=== PATIENT | male | born 1985 | race Caucasian/White ===

== ENCOUNTER 2020-06-10 14:49 | Emergency (ER) | payer MEDICAID ==
[~2020-06-10] VITALS: Ht 172.7 cm; Wt 84.0 kg
[~2020-06-10 14:49] MED LIST: ONDA8TAB9 PO; QUET-1 PO
[2020-06-10] MEDS ORDERED: ketorolac trometh inj. 60 MG/2 ML VIAL IM ONE (16:05)
[2020-06-10 16:26] VITALS: BP 127/84
== END 2020-06-10 16:23 | disposition home or self-care (01) ==
LOC: ER 14:49
DX: R07.89 Other chest pain (principal); F31.9 Bipolar disorder, unspecified; F20.9 Schizophrenia, unspecified; F12.90 Cannabis use, unspecified, uncomplicated; F15.90 Other stimulant use, unspecified, uncomplicated; F17.210 Nicotine dependence, cigarettes, uncomplicated; Z88.8 Allergy status to other drugs, medicaments and biological substances; Z79.899 Other long term (current) drug therapy
CPT/HCPCS: 71045; 93005; 96372; 99283; J1885

== ENCOUNTER 2022-03-19 22:49 | Emergency (ER) | payer MEDICAID ==
[~2022-03-19] VITALS: Ht 172.7 cm; Wt 68.2 kg
[2022-03-19 22:54] VITALS: BP 137/78
== END 2022-03-20 01:32 | disposition left against medical advice (07) ==
LOC: ER 22:50
DX: T78.40XA Allergy, unspecified, initial encounter (principal); Z53.21 Procedure and treatment not carried out due to patient leaving prior to being seen by health care provider

== ENCOUNTER 2022-06-28 12:53 | Emergency (ER) | payer MEDICAID ==
[~2022-06-28] VITALS: Ht 172.7 cm; Wt 72.8 kg
[2022-06-28] MEDS ORDERED: MAGN296S68 PO (14:25)
[2022-06-28] MEDS ORDERED: BISA-78 PO (14:25)
[2022-06-28] MEDS ORDERED: bisacodyl 5mg tablet.DR PO ONE (14:25)
[2022-06-28] MEDS ORDERED: PHEN28OI10 TOP (14:58)
[2022-06-28 15:01] VITALS: BP 108/77
== END 2022-06-28 15:32 | disposition home or self-care (01) ==
LOC: ER 12:54
DX: K59.00 Constipation, unspecified (principal); F12.90 Cannabis use, unspecified, uncomplicated; F15.90 Other stimulant use, unspecified, uncomplicated; Z88.8 Allergy status to other drugs, medicaments and biological substances; Z79.899 Other long term (current) drug therapy
CPT/HCPCS: 74018; 99283

== ENCOUNTER 2024-01-13 00:03 | Emergency (ER) | payer MEDICAID ==
[~2024-01-13] VITALS: Ht 172.7 cm; Wt 77.3 kg
[~2024-01-13 00:03] MED LIST changes: +BISA-78 PO; +MAGN296S68 PO; +PHEN28OI10 TOP
[2024-01-13 00:09] VITALS: BP 168/118; PULSE 110; RESP 18; TEMP 98.7; O2SAT 96
[2024-01-13] MEDS: normal saline 1000ML IV soln IVB ONE (00:39)
[2024-01-13] MEDS: OLANZapine 2.5MG tablet PO STA (00:39)
[2024-01-13] MEDS: acetaminophen 325mg tablet PO ONE (00:40)
== END 2024-01-13 00:34 | disposition left against medical advice (07) ==
LOC: ER 00:04
DX: R42 Dizziness and giddiness (principal); T63.011A Toxic effect of rattlesnake venom, accidental (unintentional), initial encounter; F12.90 Cannabis use, unspecified, uncomplicated; F15.90 Other stimulant use, unspecified, uncomplicated; Z79.899 Other long term (current) drug therapy; Y92.89 Other specified places as the place of occurrence of the external cause
CPT/HCPCS: 93005; 99283; J7030